=== PATIENT | female | born 1945 | race Caucasian/White ===

== ENCOUNTER 2017-10-09 14:37 | Emergency (ER) | payer MEDICARE, MEDICAID ==
[2017-10-09 14:51] VITALS: BP 203/83; PULSE 93; RESP 20; TEMP 98.5; O2SAT 100
[2017-10-09] MEDS ORDERED: Tetanus/Diphtheria Toxoids 0.5 ml Syringe IM ONE ×2 (15:07→15:56)
[2017-10-09] MEDS ORDERED: Bacitracin 500 Units/gm Oint Foilpak UD TOP ONE (15:11)
[2017-10-09] MEDS ORDERED: Lidocaine 1% Inj (20ml) INFIL STA (15:11)
[2017-10-09] MEDS ORDERED: Lidocaine Hydrochloride 5 ML INJ ONE ×2 (15:20→15:33)
--- NOTE | 2017-10-09 15:54 | C.PDOC ---
<Monique Villegas - Last Filed: 10/09/17 15:52> <Juanpablo Galicia Jr. - Last Filed: 10/09/17 16:01> Time Seen by Provider: 10/09/17 14:59 Chief Complaint (Nursing): Abnormal Skin Integrity Past Medical History - Medical History PMH: HTN - Social History Hx Alcohol Use: No Hx Substance Use: No <Monique Villegas - Last Filed: 10/09/17 15:52> Vital Signs: Last Vital Signs Temp 98.5 F 10/09/17 14:46 Pulse 93 H 10/09/17 14:46 Resp 20 10/09/17 14:46 BP 203/83 H 10/09/17 14:46 Pulse Ox 100 10/09/17 15:54 ED Course And Treatment O2 Sat by Pulse Oximetry: 100 <Monique Villegas - Last Filed: 10/09/17 15:52> Laceration - Laceration Repair Left Thumb Wound Length (In cm): 2 Description Of Wound: Linear Wound Cleansed With: Sterile Saline Anesthesia: Lidocaine 1% Wound Examination: Irrigated With Saline, No FB With Wound Exploration, No Tendon Injury With Wound Exploration Wound Closure: Suture Suture Technique And Material Used: Interrupted (3), Nylon (4-0) Wound Complexity: Simple Left 4th digit Wound Length (In cm): 1 Description Of Wound: Linear Anesthesia: Lidocaine 1% Wound Examination: Irrigated With Saline, No FB With Wound Exploration, No Tendon Injury With Wound Exploration Wound Closure: Suture Suture Technique And Material Used: Interrupted (2), Nylon (4-0) Wound Complexity: Simple <Juanpablo Galicia Jr. - Last Filed: 10/09/17 16:01> Disposition Counseled Patient/Family Regarding: Need For Followup, Rx Given - Disposition Disposition Time: 15:53 - POA Present On Arrival: None <Monique Villegas - Last Filed: 10/09/17 15:52> <Juanpablo Galicia Jr. - Last Filed: 10/09/17 16:01> - Disposition Disposition: HOME/ ROUTINE Additional Instructions: Take Tylenol or Advil for any pain. Take antibiotic to prevent infection Remove dressing in 24 hours. May wash gently with soap and water. Change dressing 1-2 times daily. Return to ER if fever occurs, redness or swelling around wound, pus in the wound. Please follow up with your primary doctor, clinic, or urgent care for suture removal in 8-10 days Prescriptions: Cephalexin [cephalexin] 500 mg PO Q12 #10 cap Instructions: Laceration Repair With Stitches (DC) Forms: [facility] [facility] (Uzbek) - Clinical Impression Clinical Impression: Accidental fall, Laceration of finger, Knee abrasion
--- NOTE | 2017-10-09 16:04 | C.PDOC ---
History Of Present Illness 72 year old female patient presents to the ED for an evaluation of a laceration to her left thumb and left ring finger sustained after she tripped and fell while holding a glass of water. Patient applied tumeric powder to stop the bleeding. Patient denies any weakness, tingling, or numbness. Time Seen by Provider: 10/09/17 14:59 Chief Complaint (Nursing): Abnormal Skin Integrity History Per: Patient History/Exam Limitations: no limitations Onset/Duration Of Symptoms: Hrs Current Symptoms Are (Timing): Still Present Location Of Injury: Right: Knee (abrasion), Left: Hand (Laceration to left thumb and left ring finger) Severity: Mild Past Medical History Reviewed: Historical Data, Nursing Documentation, Vital Signs Vital Signs: Last Vital Signs Temp 98.5 F 10/09/17 14:46 Pulse 93 H 10/09/17 14:46 Resp 20 10/09/17 14:46 BP 203/83 H 10/09/17 14:46 Pulse Ox 100 10/09/17 16:54 - Medical History PMH: HTN Surgical History: No Surg Hx Family History: States: No Known Family Hx - Social History Hx Alcohol Use: No Hx Substance Use: No Review Of Systems Except As Marked, All Systems Reviewed And Found Negative. Skin: Positive for: Other (Laceration to left thumb and left ring finger ) Neurological: Negative for: Weakness, Numbness Physical Exam - Physical Exam Appears: Non-toxic, No Acute Distress Skin: Normal Color, Warm, Other (2cm curved laceration to left thumb fingertip, 1cm laceration to volar PIP 4th digit, Superficial abrasion to right knee) Head: Atraumatic, Normacephalic Eye(s): bilateral: Normal Inspection Neck: Normal ROM Chest: Symmetrical Extremity: Normal ROM, No Tenderness, No Deformity, No Swelling Neurological/Psych: Oriented x3, Normal Speech Gait: Steady ED Course And Treatment O2 Sat by Pulse Oximetry: 100 (RA) Pulse Ox Interpretation: Normal Laceration - Laceration Repair Left thumb Wound Length (In cm): 2 Description Of Wound: Linear Wound Cleansed With: Sterile Saline Anesthesia: Lidocaine 1% Wound Examination: Irrigated With Saline, No FB With Wound Exploration, No Tendon Injury With Wound Exploration Wound Closure: Suture Suture Technique And Material Used: Interrupted (3), Nylon (4-0) Wound Complexity: Simple Left 4th digit Wound Length (In cm): 1 Description Of Wound: Linear Wound Cleansed With: Sterile Saline Anesthesia: Lidocaine 1% Wound Examination: Irrigated With Saline, No FB With Wound Exploration, No Tendon Injury With Wound Exploration Wound Closure: Suture Suture Technique And Material Used: Interrupted (2), Nylon (4-0) Wound Complexity: Simple Medical Decision Making Medical Decision Making: Impression: Laceration Orders: Left hand Xray ordered to rule out foreign body or fracture. Progress: Xray shows no fracture or foreign body. Laceration repair performed. Patient tolerated procedure well. Bacitracin and dressing applied. bacitracin applied to knee abrasion. Patient instructed on wound care and when to return for suture removal . Patient is stable and ready for discharge. Patient instructed to follow up with physician for suture removal in 8-10 days. Disposition Counseled Patient/Family Regarding: Diagnosis, Need For Followup, Rx Given - Disposition Disposition: HOME/ ROUTINE Disposition Time: 15:50 Condition: STABLE Additional Instructions: Take Tylenol or Advil for any pain. Take antibiotic to prevent infection Remove dressing in 24 hours. May wash gently with soap and water. Change dressing 1-2 times daily. Return to ER if fever occurs, redness or swelling around wound, pus in the wound. Please follow up with your primary doctor, clinic, or urgent care for suture removal in 8-10 days Prescriptions: Cephalexin [cephalexin] 500 mg PO Q12 #10 cap Instructions: Laceration Repair With Stitches (DC) Forms: [facility] (Danish) - POA Present On Arrival: Falls Or Trauma - Clinical Impression Clinical Impression: Accidental fall, Laceration of finger, Knee abrasion - PA / NEPHROLOGY SOCIAL WORKER / Resident Statement MD/DO has reviewed & agrees with the documentation as recorded. - Scribe Statement The provider has reviewed the documentation as recorded by the Brandt Contreras All medical record entries made by the Brandt were at my direction and personally dictated by me. I have reviewed the chart and agree that the record accurately reflects my personal performance of the history, physical exam, medical decision making, and the department course for this patient. I have also personally directed, reviewed, and agree with the discharge instructions and disposition.
--- NOTE | 2017-10-09 19:28 | RAD ---
PROCEDURE: Left Hand Radiographs. HISTORY: r.o foreign body, fell on glass COMPARISON: None. FINDINGS: BONES: Normal. No fracture. JOINTS: Normal. No osteoarthritic changes. SOFT TISSUES: Suspicious for small radiopaque foreign body adjacent to the proximal interphalangeal joint of the 4th finger. OTHER FINDINGS: None. IMPRESSION: Suspicious for small foreign body adjacent to the proximal interphalangeal joint of the 4th finger.
== END 2017-10-09 16:01 | disposition home or self-care (01) ==
LOC: C.ER 14:37
DX: S61.012A Laceration without foreign body of left thumb without damage to nail, initial encounter (principal); S61.215A Laceration without foreign body of left ring finger without damage to nail, initial encounter; S80.211A Abrasion, right knee, initial encounter; W01.0XXA Fall on same level from slipping, tripping and stumbling without subsequent striking against object, initial encounter